=== PATIENT | male | born 1960 | race Asian ===

== ENCOUNTER 2017-05-08 13:09 | Inpatient (IN) | payer BC ==
[~2017-05-08] VITALS: Ht 167.6 cm; Wt 84.9 kg
[2017-05-08 13:36] LABS: BASOPHILS % 0.6 % (0.0-2.0); EOSINOPHILS # 0.2 10^3/ul (0.0-0.5); EOSINOPHILS % 3.2 % (0.0-7.0); HEMATOCRIT 38.8 % (37.0-47.0); HEMOGLOBIN 13.8 g/dl (12.0-16.0); LYMPHOCYTES # 1.1 10^3/ul (0.8-2.9); LYMPHOCYTES % 20.9 % (15.0-51.0); MEAN CORPUSCULAR HEMOGLOBIN 31.7 pg (29.0-33.0); MEAN CORPUSCULAR HGB CONC 35.6 g/dl (32.0-37.0); MEAN PLATELET VOLUME 10.1 fl (7.4-10.4); MONOCYTE # 0.7 10^3/ul (0.3-0.9); MONOCYTES % 12.4 % (0.0-11.0); NEUTROPHIL # 3.3 10^3/ul (1.6-7.5); NEUTROPHILS % 62.5 % (39.0-77.0); PLATELET COUNT 244 10^3/UL (140-415); RED BLOOD COUNT 4.36 10^6/ul (4.20-5.40); RED CELL DISTRIBUTION WIDTH 13.5 % (11.5-14.5); WHITE BLOOD COUNT 5.3 10^3/ul (4.8-10.8)
--- NOTE | 2017-05-08 13:41 | RADRPT ---
PROCEDURE: XR Chest. CLINICAL INDICATION: Chest pain. TECHNIQUE: Single frontal view. COMPARISON: None. FINDINGS: The lungs are clear. The heart size is normal. There is no pleural effusion. There is no pneumothorax. IMPRESSION: 1. Normal chest radiograph. RPTAT: QQ .Jefferson Méndez MD, Date Time Electronically viewed and signed by .Jefferson Méndez MD, on 05/08/2017 13:40 .R/
--- NOTE | 2017-05-08 14:05 | RADRPT ---
PROCEDURE: CT Brain without contrast. CLINICAL INDICATION: Left-sided weakness. TECHNIQUE: A CT of the brain was performed on multidetector high-resolution CT scanner utilizing a xial sections from the skull base through the vertex without contrast. The scan was reviewed in sof t tissue brain and high frequency resolution bone algorithm windows. Images were reviewed on a high -resolution PACS workstation. One or more the following does reduction techniques were utilized: Aut omated exposure control, adjustment of the mA/ or kV according to patient's size, or use of iterativ e reconstruction technique. The exam CTDI = 44.52 mGy and the DLP = 630.2 mGy-cm. COMPARISON: None available. FINDINGS: The ventricles and sulci are mildly prominent indicative of volume loss. There is no intracranial h emorrhage, mass effect or midline shift. No abnormal intra-axial or extra-axial fluid collections a re seen. The long/white matter differentiation is preserved. There are mild scattered foci of hypoattenuation in the white matter, which are nonspecific in etiol ogy but likely reflect chronic small vessel ischemic changes. There are mild intracranial vascular calcifications consistent with atherosclerosis. The visualized paranasal sinuses are essentially maegan ar. IMPRESSION: 1. No acute intracranial hemorrhage, transcortical infarction or mass effect. Please note MRI is mo re sensitive for detection of acute ischemia and can be obtained as clinically warranted. 2. Mild intracranial atherosclerosis and chronic small vessel ischemic changes. 3. Mild generalized cerebral volume loss. RPTAT: HH .Sonja Segundo MD, MD Date Time Electronically viewed and signed by .Sonja Segundo MD, MD on 05/08/2017 14:05 .N/
[2017-05-08 14:36] LABS: CALCIUM 8.9 mg/dl (8.4-10.2); CREATININE 2.24 mg/dl (0.44-1.00); POTASSIUM 4.1 mmol/L (3.5-5.1)
[2017-05-08] MEDS ORDERED: AMLO5TAB4 PO (14:41)
[2017-05-08] MEDS ORDERED: SITA100T8 PO (14:41)
[2017-05-08 14:47] LABS: TROPONIN-I 0.017 ng/ml (0.00-0.12)
[2017-05-08] MEDS ORDERED: ACETAMINOPHEN 325 MG TAB PO PRN (15:00)
[2017-05-08] MEDS ORDERED: ONDANSETRON 4 MG INJ IV PRN ×2 (15:00→17:00)
--- NOTE | 2017-05-08 15:02 | ERD ---
ER Documentation Chief Complaint Chief Complaint BIB RA FOR EVAL OF CP HPI This is a 56-year-old male with a history of hypertension, diabetes who presents to the emergency room for evaluation of chest pain. This patient states that he was at his place of work and says that he felt chest pain and became weak. He says he became dizzy and was more weak on the left side than on the right. He states that he also started to sweat and called 911. EMS did give this patient nitro and aspirin and the patient states that he is feeling better after receiving these medications. He describes his pain as a pressure- like sensation in the center of his chest with mild radiation to the left arm. The patient came to the ER today for evaluation ROS All systems reviewed and are negative except as per history of present illness. Medications Home Meds Reported Medications Sitagliptin* (Januvia*) 100 Mg Tablet, 100 MG PO DAILY, #30 TAB 05/08/17 Amlodipine Besylate* (Norvasc*) 5 Mg Tablet, 5 MG PO DAILY, TAB 05/08/17 Allergies Allergies: Coded Allergies: No Known Allergy (Unverified , 05/08/17) PMhx/Soc Hx Cardiac Disorders: Yes (HTN, HIGH CHOL) Hx Miscellaneous Medical Probl: Yes (DM, GOUT) Hx Alcohol Use: Yes Hx Substance Use: No Hx Tobacco Use: Yes (OCCASIONAL ) Smoking Status: Light tobacco smoker Physical Exam Vitals Vital Signs Date Time Temp Pulse Resp B/P Pulse Ox O2 Delivery O2 Flow Rate FiO2 05/08/17 13:35 Nasal Cannula 2 05/08/17 13:20 98.3 99 18 164/96 100 Physical Exam INITIAL VITAL SIGNS: Reviewed by me GENERAL: The patient is well developed and appropriate for usual state of health in no apparent distress HEENT: Pupils equal, round, and reactive to light. EOMI. There is no scleral icterus. NECK: C-spine is soft and supple, there is no meningismus. There is no cervical lymphadenopathy. LUNGS: Clear to auscultation bilaterally. There are no rales, wheezes or rhonchi. HEART: Regular rate and rhythm, no murmurs, clicks, rubs or gallops. ABDOMEN: Soft, non-tender, non-distended. There are bowel sounds in all four quadrants. No rebound or guarding. EXTREMITIES: There is no peripheral cyanosis or edema. No focal swelling or erythema. NEUROLOGICAL: The patient moves all four extremities with 5/5 strength. Cranial nerves II - XII are intact. Normal gait. Alert and oriented SKIN: There is no apparent rash or petechiae. HEME/LYMPHATIC: There is no evidence of excessive bruising or lymphedema. PSYCHIATRIC: The patient does not appear anxious or depressed. Result Diagram: 05/08/17 1330 05/08/17 1410 Results 24 hrs Laboratory Tests Test 05/08/17 13:30 05/08/17 14:10 White Blood Count 5.310^3/ul Red Blood Count 4.3610^6/ul Hemoglobin 13.8g/dl Hematocrit 38.8% Mean Corpuscular Volume 89.0fl Mean Corpuscular Hemoglobin 31.7pg Mean Corpuscular Hemoglobin Concent 35.6g/dl Red Cell Distribution Width 13.5% Platelet Count 92278^3/UL Mean Platelet Volume 10.1fl Neutrophils % 62.5% Lymphocytes % 20.9% Monocytes % 12.4% Eosinophils % 3.2% Basophils % 0.6% Nucleated Red Blood Cells % 0.0/100WBC Neutrophils # 3.310^3/ul Lymphocytes # 1.110^3/ul Monocytes # 0.710^3/ul Eosinophils # 0.210^3/ul Basophils # 0.010^3/ul Nucleated Red Blood Cells # 0.010^3/ul Sodium Level 140mmol/L Potassium Level 4.1mmol/L Chloride Level 106mmol/L Carbon Dioxide Level 26mmol/L Anion Gap 12 Blood Urea Nitrogen 36mg/dl Creatinine 2.24mg/dl Glucose Level 117mg/dl Calcium Level 8.9mg/dl Troponin I 0.017ng/ml [facility] EKG: Rate/Rhythm: [Normal Sinus Rhythm] QRS, ST, T-waves: [No changes consistent w/ acute ischemia] Impression: [No evidence of ischemia or arrhythmia] Chest X-ray 1V Interpreted by me: Soft Tissue: No acute abnormalities Bones: No acute abnormalities Mediastinum/Cardiac Silhouette/Lungs: [No acute abnormalities] This 56-year-old male presents to the emergency room for evaluation of chest pain. The patient has multiple risk factors including tobacco use, hypertension , and diabetes. The patient had a nonischemic EKG and his first troponin is negative. The patient is hemodynamically stable at this time, he is not hypoxic however given his multiple risk factors he will be placed in for admission for serial troponins and possible cardiology consult. The patient will be admitted to the telemetry floor and will be admitted under our panel physician Dr. Tamez Departure Diagnosis: Primary Impression: Chest pain Additional Impressions: Renal insufficiency Tobacco use Condition: Stable ROBBI ESTEVES DO May 08, 2017 15:02
[2017-05-08] MEDS ORDERED: NACL 0.9% 3 ML SYG IV SCH (17:00)
[2017-05-08] MEDS ORDERED: BISACODYL (EC) 5 MG TAB PO PRN (17:00)
[2017-05-08] MEDS ORDERED: morphine 2 MG INJ IV PRN (17:00)
--- NOTE | 2017-05-08 17:02 | HP ---
Date/Time of Note Date/Time of Note DATE: 05/08/17 TIME: 16:52 Assessment/Plan VTE Prophylaxis VTE Prophylaxis Intervention: heparin Lines/Catheters IV [facility]ter [facility]from [facility] Saline Lock Assessment/Plan Chief Complaint/Hosp Course Patient is a 56-year-old Afghan male with past medical history of hypertension and diabetes who presents with chest pain and left-sided upper extremity numbness and weakness and jaw numbness. Assessment and plan Chest pain, pressure-like sensation Upper left extremity numbness Left-sided jaw weakness Slurred speech, per patient Diabetes mellitus acute kidney injury vs CKD Hypertension Dyslipidemia Gout IVC filter placed History of DVT, secondary to airplane flight, no anticoagulation 2/2 GI bleed 2/ 2 nsaid -Patient has been very stressed at work, patient has multiple comorbidities, trend troponins, consult cardiology for ACS rule out. -Beta-blockers and aspirin, as well as as needed morphine for pain -Atorvastatin for cholesterol issues as well as ACS rule out -Echocardiogram ordered -Ultrasound carotid ordered, CT noted, MRI has been offered for the patient, however patient states that he almost from claustrophobia from previous MRI , refuses. Offered sedation medication, patient still refuses MRI states he will do any other tests except MRI. Patient states that he assumes all responsibility for not diagnosing correct etiology of symptoms even if it means debility and -Continue home meds as able -Acute kidney injury versus chronic kidney disease, patient is a diabetic, however patient may be volume depleted, will hydrate patient slowly and reevaluate in a.m. -A.m. labs Problems: HPI/ROS Admit Date/Time Admit Date/Time Hx of Present Illness Patient is a 56-year-old Afghan male with a past medical history of hypertension dyslipidemia diabetes mellitus and gout who presents to [facility] with a 1 day onset of chest pain of pressure-like sensation. Patient was at work when he began to sweat and also has left-sided jaw numbness and left-sided arm weakness as well as numbness. Patient stated that he went to his primary care provider after work and who quickly referred him to the emergency department. Patient was given aspirin and nitroglycerin by EMT and was admitted into the medicine service. Patient currently has no acute symptoms. Patient denies any shortness of breath, chest pain, nausea, vomiting, abdominal pain, urinary or bowel dysfunction. PMH: Hypertension, dyslipidemia, diabetes mellitus, gout, DVT secondary to immobility on airplane, history of GI bleed secondary to NSAID use PSH: IVC filter placement, not on anticoagulation secondary to remote bleeding Social: Occasional smoker, occasional drinker, denies drugs Meds: Patient cannot remember entire list, amlodipine, Januvia, allopurinol PMH/Family/Social Social History Smoking Status: Light tobacco smoker Exam/Review of Systems Vital Signs Vitals Vital Signs Date Time Temp Pulse Resp B/P Pulse Ox O2 Delivery O2 Flow Rate FiO2 05/08/17 13:35 Nasal Cannula 2 05/08/17 13:20 98.3 99 18 164/96 100 Exam Exam Physical exam General: Patient is laying in bed and answers questions appropriately Mentation: Patient is alert and oriented 4, Head: Normocephalic atraumatic Eyes: EOMI, pupils reactive to light Neck: Supple, nontender, midline Respiratory: Clear to auscultation bilaterally Cardiovascular: regular rate, no obvious murmurs Gastrointestinal: non-tender to palpation, bowel sounds heard. Neurological: Moves all extremities spontaneously, 5/5 muscle all extremities, CN 2-12 intact, sensation intact Skin: No new skin lesions Labs Result Diagram: 05/08/17 1330 05/08/17 1410 QUINCY HURST May 08, 2017 17:02
[2017-05-08 17:07] VITALS: TEMP 98.3
--- NOTE | 2017-05-08 17:22 | RADRPT ---
PROCEDURE: US carotid arteries. CLINICAL INDICATION: Dizziness. TECHNIQUE: Multiple sonographic images of the carotid arteries and vertebral arteries were obtaine d utilizing long scale, duplex, and color-flow imaging. The images were reviewed on a PACS workstati on. COMPARISON: No prior studies are available for comparison. FINDINGS: Evaluation of the right carotid bifurcation region reveals mild atherosclerotic disease. Evaluation of the left carotid bifurcation region reveals mild atherosclerotic disease. There is antegrade flow within the vertebral arteries bilaterally. RIGHT CAROTID MEASUREMENTS: Common Carotid [id number] (cm/sec) Internal Carotid Artery 45 (cm/sec) External Carotid Artery 55 (cm/sec) Vertebral Artery 24 (cm/sec) Internal Carotid/Common Carotid0.6 LEFT CAROTID MEASUREMENTS: Common Carotid [id number] (cm/sec) Internal Carotid Artery 52 (cm/sec) External Carotid Artery 70 (cm/sec) Vertebral Artery 51 (cm/sec) Internal Carotid/Common Carotid1.0 Validated velocity measurements with angiographic measurements. Velocity criteria are extrapolated f rom diameter data as defined by the Society of Radiologists in Ultrasound Consensus Conference. Radi ology 2003; 229;340-346. This study does indirectly reference the measurement of the distal ICA jose de jesus meter as the denominator for stenosis measurement. IMPRESSION: 1. Less than 50% stenosis bilaterally in the internal carotid arteries. 2. Normal antegrade flow in the vertebral arteries bilaterally. RPTAT: QQ SRU Consensus Conference Criteria for the Diagnosis of Carotid Artery Stenosis* Degree of Stenosis, % ICA PSV, cm/sec Plaque Estimate, % ICA/CCA PSV Ratio Normal <125 None <2.0 <50 <125 <50 <2.0 50 69 125-230 >50 2.0-4.0 >70 but less than near occlusion >230 >50 <4.0 Near occlusion High, low, or undetectable Visible Variable Total occlusion Undetectable Visible, no detectable lumen Not applicable *Cartoid artery stenosis: long-scale and Doppler US diagnosis. Society of Radiologists in Ultrasound Consensus Conference. Radiology 2003; 229: 340-346 .Jefferson Méndez MD, Date Time Electronically viewed and signed by .Jefferson Méndez MD, on 05/08/2017 17:22 .R/
[2017-05-08] MEDS ORDERED: GLUCAGON 1 MG INJ IM PRN (17:30)
[2017-05-08] MEDS ORDERED: GLUCOSE GEL 15 GRAM TUBE PO PRN ×2 (17:30)
[2017-05-08] MEDS ORDERED: GLUCOSE GEL 15 GRAM TUBE BUCCAL PRN (17:30)
[2017-05-08] MEDS ORDERED: DEXTROSE 50% 50 ML SYRINGE IV PRN ×2 (17:30)
--- NOTE | 2017-05-08 17:35 | RADRPT ---
PROCEDURE: US Lower extremity venous, bilateral CLINICAL INDICATION: The venous thrombosis TECHNIQUE: Multiple sonographic images of the bilateral lower extremity deep venous system was ob tained utilizing grayscale, color-flow, compressive sonography and doppler imaging with augmentation . The images were reviewed on a PACS workstation. COMPARISON: None. FINDINGS: There is normal compressibility and flow within the bilateral common femoral, superficial femoral , posterior tibial, peroneal and popliteal veins. RPTAT: AA IMPRESSION: No sonographic evidence for deep venous thrombosis in bilateral lower extremities. Physician Thuy Date Time Electronically viewed and signed by Physician Thuy on 05/08/2017 17:35 RA/
[2017-05-08 17:50] VITALS: BP 158/94; PULSE 96; RESP 20
[2017-05-08] MEDS ORDERED: INSULIN ASPART [NOVOLOG] 3 ML PEN SC SCH (18:00)
[2017-05-08 18:12] VITALS: PULSE 85
[2017-05-08 18:30] VITALS: Ht 167.6 cm; Wt 84.9 kg
[2017-05-08 19:46] VITALS: BP 138/64; RESP 20
[2017-05-08 20:11] VITALS: PULSE 100
[2017-05-08] MEDS ORDERED: ATORVASTATIN 80 MG TAB PO SCH (21:00)
[2017-05-08] MEDS: INSULIN ASPART [NOVOLOG] 3 ML PEN SC SCH (21:00)
[2017-05-08 21:25] LABS: CK-MB 1.71 ng/ml (0.0-2.4); TROPONIN-I 0.037 ng/ml (0.00-0.12)
[2017-05-08] MEDS: SOD CHLORIDE 0.9% 1,000 ML IV SCH (21:58)
[2017-05-08] MEDS: METOPROLOL 25 MG TAB PO SCH (21:59)
[2017-05-08] MEDS: LORAZEPAM 2 MG INJ IV PRN (21:59)
[2017-05-08] MEDS: HEPARIN 5,000 UNIT/0.5 ML VIAL SC SCH (22:10)
[2017-05-09] VITALS (13 sets, daily range): BP systolic 116–155; BP diastolic 73–97; PULSE 63–75; RESP 18–20
[2017-05-09 01:41] LABS: CK-MB 1.49 ng/ml (0.0-2.4)
[2017-05-09 01:44] LABS: TROPONIN-I 0.039 ng/ml (0.00-0.12)
[2017-05-09] MEDS: ACCU-CHEK XX SCH (02:00)
[2017-05-09] MEDS: PANTOPRAZOLE (EC) 40 MG TAB PO SCH (05:42)
[2017-05-09] MEDS: HEPARIN 5,000 UNIT/0.5 ML VIAL SC SCH ×3 (05:42→21:24)
--- NOTE | 2017-05-09 06:37 | RADRPT ---
PROCEDURE: CHEST - 1 VIEW CLINICAL INDICATION: 56-year-old male with chest pain. TECHNIQUE: A single frontal AP portable view of the chest was performed. The images were reviewed on a PACS workstation. COMPARISON: Chest x-ray May 08, 2017. FINDINGS: The cardiomediastinal silhouette has a normal appearance. There is no evidence for an infiltrate. There is no evidence for congestive heart failure. There is no evidence for pneumothorax. The osseou s structures are intact. IMPRESSION: No evidence for active cardiopulmonary disease. .José Miguel Fuentes MD, MD Date Time Electronically viewed and signed by .José Miguel Fuentes MD, MD on 05/09/2017 06:37 .M/
[2017-05-09] MEDS: INSULIN ASPART [NOVOLOG] 3 ML PEN SC SCH ×4 (08:00→21:00)
[2017-05-09 08:52] LABS: BASOPHILS % 0.7 % (0.0-2.0); EOSINOPHILS # 0.2 10^3/ul (0.0-0.5); HEMATOCRIT 38.4 % (42.0-52.0); LYMPHOCYTES # 1.4 10^3/ul (0.8-2.9); LYMPHOCYTES % 25.1 % (15.0-51.0); MEAN CORPUSCULAR HEMOGLOBIN 30.8 pg (29.0-33.0); MEAN CORPUSCULAR HGB CONC 33.9 g/dl (32.0-37.0); MEAN PLATELET VOLUME 10.1 fl (7.4-10.4); MONOCYTE # 0.7 10^3/ul (0.3-0.9); MONOCYTES % 12.5 % (0.0-11.0); NEUTROPHIL # 3.1 10^3/ul (1.6-7.5); NEUTROPHILS % 57.5 % (39.0-77.0); PLATELET COUNT 231 10^3/UL (140-415); RED BLOOD COUNT 4.22 10^6/ul (4.70-6.10); RED CELL DISTRIBUTION WIDTH 13.6 % (11.5-14.5); WHITE BLOOD COUNT 5.5 10^3/ul (4.8-10.8)
[2017-05-09] MEDS ORDERED: ENOXAPARIN 40 MG/0.4 ML SYG SC SCH (09:00)
[2017-05-09 09:09] LABS: ALBUMIN 3.5 g/dl (3.3-4.9); ALBUMIN/GLOBULIN RATIO 0.92; BILIRUBIN,INDIRECT 0.2 mg/dl (0-1.1); BILIRUBIN,TOTAL 0.2 mg/dl (0.2-1.3); CALCIUM 8.8 mg/dl (8.4-10.2); CHOL/HDL RATIO 3.5 RATIO; CREATININE 2.32 mg/dl (0.61-1.24); POTASSIUM 3.9 mmol/L (3.5-5.1); TOTAL PROTEIN 7.3 g/dl (6.1-8.1)
[2017-05-09 09:32] LABS: THYROID STIMULATING HORMONE 2.23 MIU/L (0.465-4.680)
[2017-05-09] MEDS: METOPROLOL 25 MG TAB PO SCH ×2 (09:45→21:17)
[2017-05-09] MEDS: ASPIRIN 81 MG TAB PO SCH (09:45)
--- NOTE | 2017-05-09 09:59 | CONS ---
Date/Time of Note Date/Time of Note DATE: 05/09/17 TIME: 09:59 Assessment/Plan Assessment/Plan Additional Assessment/Plan ASSESSMENT: 1. Acute kidney injury vs ACute kidney injury on CKD due to Prerenal azotemia + CRS 2. possible CKD III due to diabetic nephropathy 3. Chest pain rule out ACS 4. TIA Vs Rule out CVA 5. HTN 6. Poorly controlled DM II 7. hyperlipidemia 8. History of DVT, secondary to airplane flight, no anticoagulation 2/2 GI bleed 2/2 NSAID s/p IVC filter placement before Plan: Work up for chest pain and TIA as per PMD avoid ACEI/ARB due to elevated BUN/Cr will order Urine prot/cr ratio, Urine Na, urine eosinophils, CK total ,uric acid RENAL US has been unremarkable, but it showed right kidney 10 cm and left kidney 10.2 cm, c/w medical renal disease Cardiology has been consulted on the case ASA, lipitor and metoprolol for HTN and HL Thanks for consultation, we will continue to follow up on patient Consultation Date/Type/Reason Admit Date/Time 05/08/2017 Date of Consultation: May 09, 2017 Type of Consultation: NEPHROLOGY Reason for Consultation acute Kidney injury on CKD III Referring Provider: QUINCY HURST Hx of Present Illness 56-year-old Indian male with a past medical history of hypertension dyslipidemia diabetes mellitus and gout who presents to [facility] with a 1 day onset of chest pain of pressure-like sensation. Patient was at work when he began to sweat and also has left-sided jaw numbness and left -sided arm weakness as well as numbness. Patient stated that he went to his primary care provider after work and who quickly referred him to the emergency department. Patient was given aspirin and nitroglycerin by EMT and was admitted into the medicine service. Patient currently has no acute symptoms. Patient denies any shortness of breath, chest pain, nausea, vomiting, abdominal pain, urinary or bowel dysfunction. He is noted to have BUN 36, Cr 2.26 and Renal has been consulted for SUZI vs SUZI on CKD Constitutional: no complaints Eyes: no complaints ENT: no complaints Respiratory: pain, pleuritic pain Cardiovascular: chest pain Gastrointestinal: no complaints Genitourinary: no complaints Musculoskeletal: no complaints Skin: no complaints Neurologic: no complaints Endocrine: no complaints Lymphatic: no complaints Psychological: no complaints Immunologic: no complaints Past Medical History Medical History: diabetes, high cholesterol, hypertension, other (gout, DVT secondary to immobility on airplane, history of GI bleed secondary to NSAID use) Past Surgical History Past Surgical Hx: other (IVC filter placement, not on anticoagulation secondary to remote bleeding) Family History Significant Family History: no pertinent family hx Social History Alcohol Use: occasionally Smoking Status: Current every day smoker Drug Use: none Exam/Review of Systems Vital Signs Vitals Vital Signs Date Time Temp Pulse Resp B/P Pulse Ox O2 Delivery O2 Flow Rate FiO2 05/09/17 08:16 69 05/09/17 07:27 98.1 20 129/79 98 05/08/17 17:50 Room Air 05/08/17 13:35 2 Intake and Output 05/08/17 05/08/17 05/09/17 15:00 23:00 07:00 Intake Total 400 ml Balance 400 ml Exam Constitutional: alert Psych: no complaints Head: normocephalic Eyes: nl conjunctiva Neck: non-tender, supple Respiratory: clear to auscultation, diminished breath sounds, normal air movement Cardiovascular: nl pulses, regular rate and rhythm Gastrointestinal: non-tender, soft Musculoskeletal: muscle tone, muscle weakness, nl extremities to inspection, nl gait and stance Neurological: LEGAL FIN[employer]CIAL SPECIALIST II-XII intact, nl mental status, nl speech, nl strength Skin: nl turgor Lymph: nl lymph nodes Results Result Diagram: 05/09/17 0729 05/09/17 0729 Results 24 hrs Laboratory Tests Test 05/08/17 13:30 05/08/17 14:10 05/08/17 20:43 05/08/17 22:09 White Blood Count 5.3 Red Blood Count 4.36 Hemoglobin 13.8 Hematocrit 38.8 Mean Corpuscular Volume 89.0 Mean Corpuscular Hemoglobin 31.7 Mean Corpuscular Hemoglobin Concent 35.6 Red Cell Distribution Width 13.5 Platelet Count 244 Mean Platelet Volume 10.1 Neutrophils % 62.5 Lymphocytes % 20.9 Monocytes % 12.4 H Eosinophils % 3.2 Basophils % 0.6 Nucleated Red Blood Cells % 0.0 Neutrophils # 3.3 Lymphocytes # 1.1 Monocytes # 0.7 Eosinophils # 0.2 Basophils # 0.0 Nucleated Red Blood Cells # 0.0 Sodium Level 140 Potassium Level 4.1 Chloride Level 106 Carbon Dioxide Level 26 Anion Gap 12 Blood Urea Nitrogen 36 H Creatinine 2.24 H Glucose Level 117 Calcium Level 8.9 Troponin I 0.017 0.037 Creatine Kinase 179 Creatine Kinase Index 1.0 Creatinine Kinase MB (Mass) 1.71 Bedside Glucose 118 Test 05/09/17 00:54 05/09/17 07:29 05/09/17 08:25 Creatine Kinase 154 Creatine Kinase Index 1.0 Creatinine Kinase MB (Mass) 1.49 Troponin I 0.039 White Blood Count 5.5 Red Blood Count 4.22 L Hemoglobin 13.0 L Hematocrit 38.4 L Mean Corpuscular Volume 91.0 Mean Corpuscular Hemoglobin 30.8 Mean Corpuscular Hemoglobin Concent 33.9 Red Cell Distribution Width 13.6 Platelet Count 231 Mean Platelet Volume 10.1 Neutrophils % 57.5 Lymphocytes % 25.1 Monocytes % 12.5 H Eosinophils % 4.0 Basophils % 0.7 Nucleated Red Blood Cells % 0.0 Neutrophils # 3.1 Lymphocytes # 1.4 Monocytes # 0.7 Eosinophils # 0.2 Basophils # 0.0 Nucleated Red Blood Cells # 0.0 Sodium Level 140 Potassium Level 3.9 Chloride Level 105 Carbon Dioxide Level 27 Anion Gap 12 Blood Urea Nitrogen 38 H Creatinine 2.32 H Glucose Level 110 Hemoglobin A1c 6.1 H Calcium Level 8.8 Total Bilirubin 0.2 Direct Bilirubin 0.00 Indirect Bilirubin 0.2 Aspartate Amino Transf (AST/SGOT) 27 Alanine Aminotransferase (ALT/SGPT) 28 Alkaline Phosphatase 68 Total Protein 7.3 Albumin 3.5 Globulin 3.80 H Albumin/Globulin Ratio 0.92 Triglycerides Level 386 H Cholesterol Level 194 LDL Cholesterol, Calculated 62 HDL Cholesterol 55 Cholesterol/HDL Ratio 3.5 Thyroid Stimulating Hormone (TSH) 2.230 Bedside Glucose 127 Medications Medications Current Medications Sodium Chloride (NS) 1,000 ml @ 50 mls/hr Q20H IV Last administered on 21:58; Admin Dose 50 MLS/HR; Start 05/08/17 at 16:40 Lorazepam (Ativan) 0.5 mg Q6H PRN IV ANXIETY Last administered on 05/08/17 21 :59; Admin Dose 0.5 MG; Start 05/08/17 at 17:00 Ondansetron HCl (Zofran Inj) 4 mg Q6H PRN IV NAUSEA AND/OR VOMITING; Start at 17:00 Aspirin (Aspirin) 81 mg DAILY PO Last administered on 05/09/17 09:45; Admin Dose 81 MG; Start 05/09/17 at 09:00 Acetaminophen (Tylenol Tab) 650 mg Q6H PRN PO PAIN LEVEL 1-3 OR FEVER; Start 05/08/17 at 17:00 Morphine Sulfate (morphine) 2 mg Q4H PRN IV PAIN LEVEL 7-10; Start 05/08/17 at 17:00 Bisacodyl (Dulcolax) 5 mg DAILY PRN PO CONSTIPATION; Start 05/08/17 at 17:00 Pantoprazole (Protonix Tab) 40 mg DAILY@06 PO Last administered on 05/09/17 05:42; Admin Dose 40 MG; Start 05/09/17 at 06:00 Diagnostic Test (Pha) (Accu-Chek) 1 ea 02 XX ; Start 05/09/17 at 02:00 Atorvastatin Calcium (Lipitor) 80 mg HS PO Last administered on 05/08/17 21: 58; Admin Dose 80 MG; Start 05/08/17 at 21:00 Metoprolol Tartrate (Lopressor) 25 mg BID PO Last administered on 05/09/17 09 :45; Admin Dose 25 MG; Start 05/08/17 at 21:00 Heparin Sodium (Porcine) (Heparin (5000 Units/0.5 ml)) 5,000 unit Q8 SC Last administered on 05/09/17 05:42; Admin Dose 5,000 UNIT; Start 05/08/17 at 22: 00 Miscellaneous Information 1 ea NOTE XX ; Start 05/08/17 at 17:30 Glucose (Glutose) 15 gm Q15M PRN PO DECREASED GLUCOSE; Start 05/08/17 at 17:30 Glucose (Glutose) 22.5 gm Q15M PRN PO DECREASED GLUCOSE; Start 05/08/17 at 17: 30 Dextrose (D50w Syringe) 25 ml Q15M PRN IV DECREASED GLUCOSE; Start 05/08/17 at 17:30 Dextrose (D50w Syringe) 50 ml Q15M PRN IV DECREASED GLUCOSE; Start 05/08/17 at 17:30 Glucagon (Glucagen) 1 mg Q15M PRN IM DECREASED GLUCOSE; Start 05/08/17 at 17: 30 Glucose (Glutose) 15 gm Q15M PRN BUCCAL DECREASED GLUCOSE; Start 05/08/17 at 17:30 REHANA STEVENS MD May 09, 2017 09:59
--- NOTE | 2017-05-09 11:35 | RADRPT ---
PROCEDURE: Renal US. CLINICAL INDICATION: Renal dysfunction. TECHNIQUE: Multiple sonographic images of the kidneys and urinary bladder were obtained. The imag es were reviewed on a PACS workstation. COMPARISON: No prior studies are available for comparison. FINDINGS: The right kidney measures 10.0 cm. The left kidney measures 10.3 cm. There is no renal mass. There is no hydronephrosis. There is no renal calculus. Renal parenchymal thickness is normal bilaterally. Echogenicity is normal bilaterally. The perirenal regions are normal with no fluid collection or mass. The urinary bladder is unremarkable. IMPRESSION: 1. Unremarkable renal ultrasound. RPTAT: QQ .Jefferson Méndez MD, MD Date Time Electronically viewed and signed by .Jefferson Méndez MD, on 05/09/2017 11:34 .R/
--- NOTE | 2017-05-09 12:01 | RADRPT ---
Echocardiogram Report Patient Name: AKIN GALAN Gender: Male Date: 1960 Study Date: 09-May-2017 Point Of Sale Associate: ELAINE Location: 5551 Ref. Physician: QUINCY HURST Quality: Good Procedures: Transthoracic echocardiogram with complete 2D, M-Mode, and doppler examination. Indications: Chest Pain. 2D/M Mode Doppler Measurement Value Normal Ranges Measurement Value Normal Ranges AoR Diam MM 3.5 cm FABIAN Vmax 2.6 cm2 ACS MM 2.2 cm FABIAN VTI 2.6 cm2 LA/Ao MM 1.0 AV Peak Luther 1.0 m/sec LA Dimen MM 3.6 cm AV Peak PG 4.0 mmHg LVIDd 2D 5.0 3.5 - 5.6 cm LVOT Peak Luther 0.8 m/sec LVIDs 2D 3.4 2.1 - 4.1 cm LVOT Peak PG 2.7 mmHg LVPWd 2D 1.0 0.6 - 1.1 cm MV E Peak Luther 0.6 m/sec IVSd 2D 1.1 0.6 - 1.1 cm MV A Peak Luther 0.9 m/sec EDV 2D 116.3 cm3 MV E/A 0.8 ESV 2D 38.8 cm3 MV Decel Time 193 msec EF 2D 60.0 50.0 - 65.0 % MV Decel [place] 3 LVOT Diam 2.0 cm MV E/A 0.8 Findings Left Ventricle: Normal left ventricular systolic function. Normal left ventricular cavity size. Normal left ventricular wall thickness. Ejection fraction is visually estimated at 5560 %. Tissue Doppler/Mitral Doppler indices are consistent with impaired relaxation (Stage I diastolic dysfunction). Right Ventricle: Normal right ventricular size. Normal right ventricular systolic function. Left Atrium: The left atrium is normal in size. Right Atrium: The right atrium is normal in size. Mitral Valve: Normal appearance of the mitral valve. Mild mitral annular calcification. Trace mitral regurgitation. Aortic Valve: Normal appearance of the aortic valve. No significant aortic stenosis or insufficiency. Tricuspid Valve: Normal appearance of the tricuspid valve. Unable to obtain RVSP due to minimal presence of tricuspid regurgitation. Pulmonic Valve: Pulmonic valve not well visualized however velocity is normal. Pericardium: Normal pericardium with no significant pericardial effusion. Aorta: Normal aortic root. IVC: Normal size and normal respiratory collapse consistent with normal right atrial pressure. Conclusions 1.The left ventricle is normal in size and systolic function. 2.Estimated left ventricular ejection fraction of 55-60%. 3.Grade 1 diastolic dysfunction. Electronically Signed By: Jelani Matos 09-May-2017 12:00:48 -0700 Patient Name: AKIN GALAN Study Date: 09-May-2017 [id number]
[2017-05-09 12:11] LABS: URIC ACID 7.8 mg/dl (3.1-7.9)
[2017-05-09] MEDS: SOD CHLORIDE 0.9% 1,000 ML IV SCH (12:40)
--- NOTE | 2017-05-09 13:38 | PN ---
Date/Time of Note Date/Time of Note DATE: 05/09/17 TIME: 13:34 Assessment/Plan VTE Prophylaxis VTE Prophylaxis Intervention: heparin Lines/Catheters IV Catheter Type (from [email or web address] Peripheral IV Assessment/Plan Chief Complaint/Hosp Course Patient is a 56-year-old Turkish male with past medical history of hypertension and diabetes who presents with chest pain and left-sided upper extremity numbness and weakness and jaw numbness. Assessment and plan Chest pain, pressure-like sensation Upper left extremity numbness Left-sided jaw weakness Slurred speech, per patient Diabetes mellitus acute kidney injury vs CKD Hypertension Dyslipidemia Gout IVC filter placed History of DVT, secondary to airplane flight, no anticoagulation 2/2 GI bleed 2/ 2 nsaid -Patient has been very stressed at work, patient has multiple comorbidities, trop neg, consult cardiology for ACS rule out. pending cards recs -Beta-blockers and aspirin, as well as as needed morphine for pain -Atorvastatin for cholesterol issues as well as ACS rule out -Echocardiogram ordered -Ultrasound carotid noted, CT noted, MRI has been offered for the patient, however patient states that he almost from claustrophobia from previous MRI , refuses. Offered sedation medication, patient still refuses MRI states he will do any other tests except MRI. Patient states that he assumes all responsibility for not diagnosing correct etiology of symptoms even if it means debility and -Patient states he got DVT 2 years ago while on a flight form the [facility], no cancer or coagulopathy hx, given provoked DVT, not on anticoagulation, 2 years ago with no DVT before or after, will consider IVC filter removal. Dr. Murray, vascular surgery consulted. -Continue home meds as able -Acute kidney injury versus chronic kidney disease, patient is a diabetic and a remote hx of renal issues, US renal and nephro consult made. Dr. Yang. -A.m. labs Problems: Subjective 24 Hr Interval Summary Free Text/Dictation no chest pain, no left sided weakness Exam/Review of Systems Vital Signs Vitals Vital Signs Date Time Temp Pulse Resp B/P Pulse Ox O2 Delivery O2 Flow Rate FiO2 05/09/17 12:15 63 05/09/17 11:16 98.1 20 137/88 95 05/08/17 17:50 Room Air 05/08/17 13:35 2 Intake and Output 05/08/17 05/08/17 05/09/17 15:00 23:00 07:00 Intake Total 400 ml Balance 400 ml Exam Physical exam General: Patient is laying in bed and answers questions appropriately Mentation: Patient is alert and oriented 4, Head: Normocephalic atraumatic Eyes: EOMI, pupils reactive to light Neck: Supple, nontender, midline Respiratory: Clear to auscultation bilaterally Cardiovascular: regular rate, no obvious murmurs Gastrointestinal: non-tender to palpation, bowel sounds heard. Neurological: Moves all extremities spontaneously, 5/5 muscle all extremities, CN 2-12 intact, sensation intact Skin: No new skin lesions Results Result Diagram: 05/09/17 0729 05/09/17 0729 Results 24 hrs Laboratory Tests Test 05/08/17 14:10 05/08/17 20:43 05/08/17 22:09 05/09/17 00:54 Sodium Level 140 Potassium Level 4.1 Chloride Level 106 Carbon Dioxide Level 26 Anion Gap 12 Blood Urea Nitrogen 36 H Creatinine 2.24 H Glucose Level 117 Calcium Level 8.9 Troponin I 0.017 0.037 0.039 Creatine Kinase 179 154 Creatine Kinase Index 1.0 1.0 Creatinine Kinase MB (Mass) 1.71 1.49 Bedside Glucose 118 Test 05/09/17 07:29 05/09/17 08:25 05/09/17 10:42 05/09/17 12:18 White Blood Count 5.5 Red Blood Count 4.22 L Hemoglobin 13.0 L Hematocrit 38.4 L Mean Corpuscular Volume 91.0 Mean Corpuscular Hemoglobin 30.8 Mean Corpuscular Hemoglobin Concent 33.9 Red Cell Distribution Width 13.6 Platelet Count 231 Mean Platelet Volume 10.1 Neutrophils % 57.5 Lymphocytes % 25.1 Monocytes % 12.5 H Eosinophils % 4.0 Basophils % 0.7 Nucleated Red Blood Cells % 0.0 Neutrophils # 3.1 Lymphocytes # 1.4 Monocytes # 0.7 Eosinophils # 0.2 Basophils # 0.0 Nucleated Red Blood Cells # 0.0 Sodium Level 140 Potassium Level 3.9 Chloride Level 105 Carbon Dioxide Level 27 Anion Gap 12 Blood Urea Nitrogen 38 H Creatinine 2.32 H Glucose Level 110 Hemoglobin A1c 6.1 H Calcium Level 8.8 Total Bilirubin 0.2 Direct Bilirubin 0.00 Indirect Bilirubin 0.2 Aspartate Amino Transf (AST/SGOT) 27 Alanine Aminotransferase (ALT/SGPT) 28 Alkaline Phosphatase 68 Total Protein 7.3 Albumin 3.5 Globulin 3.80 H Albumin/Globulin Ratio 0.92 Triglycerides Level 386 H Cholesterol Level 194 LDL Cholesterol, Calculated 62 HDL Cholesterol 55 Cholesterol/HDL Ratio 3.5 Thyroid Stimulating Hormone (TSH) 2.230 Bedside Glucose 127 110 Uric Acid 7.8 Creatine Kinase 127 Parathyroid Hormone (Intact) Medications Medications Current Medications Sodium Chloride (NS) 1,000 ml @ 50 mls/hr Q20H IV Last administered on 21:58; Admin Dose 50 MLS/HR; Start 05/08/17 at 16:40 Lorazepam (Ativan) 0.5 mg Q6H PRN IV ANXIETY Last administered on 05/08/17 21 :59; Admin Dose 0.5 MG; Start 05/08/17 at 17:00 Ondansetron HCl (Zofran Inj) 4 mg Q6H PRN IV NAUSEA AND/OR VOMITING; Start at 17:00 Aspirin (Aspirin) 81 mg DAILY PO Last administered on 05/09/17 09:45; Admin Dose 81 MG; Start 05/09/17 at 09:00 Acetaminophen (Tylenol Tab) 650 mg Q6H PRN PO PAIN LEVEL 1-3 OR FEVER; Start 05/08/17 at 17:00 Morphine Sulfate (morphine) 2 mg Q4H PRN IV PAIN LEVEL 7-10; Start 05/08/17 at 17:00 Bisacodyl (Dulcolax) 5 mg DAILY PRN PO CONSTIPATION; Start 05/08/17 at 17:00 Pantoprazole (Protonix Tab) 40 mg DAILY@06 PO Last administered on 05/09/17 05:42; Admin Dose 40 MG; Start 05/09/17 at 06:00 Diagnostic Test (Pha) (Accu-Chek) 1 ea 02 XX ; Start 05/09/17 at 02:00 Atorvastatin Calcium (Lipitor) 80 mg HS PO Last administered on 05/08/17 21: 58; Admin Dose 80 MG; Start 05/08/17 at 21:00 Metoprolol Tartrate (Lopressor) 25 mg BID PO Last administered on 05/09/17 09 :45; Admin Dose 25 MG; Start 05/08/17 at 21:00 Heparin Sodium (Porcine) (Heparin (5000 Units/0.5 ml)) 5,000 unit Q8 SC Last administered on 05/09/17t 05:42; Admin Dose 5,000 UNIT; Start 05/08/17 at 22: 00 Miscellaneous Information 1 ea NOTE XX ; Start 05/08/17 at 17:30 Glucose (Glutose) 15 gm Q15M PRN PO DECREASED GLUCOSE; Start 05/08/17 at 17:30 Glucose (Glutose) 22.5 gm Q15M PRN PO DECREASED GLUCOSE; Start 05/08/17 at 17: 30 Dextrose (D50w Syringe) 25 ml Q15M PRN IV DECREASED GLUCOSE; Start 05/08/17 at 17:30 Dextrose (D50w Syringe) 50 ml Q15M PRN IV DECREASED GLUCOSE; Start 05/08/17 at 17:30 Glucagon (Glucagen) 1 mg Q15M PRN IM DECREASED GLUCOSE; Start 05/08/17 at 17: 30 Glucose (Glutose) 15 gm Q15M PRN BUCCAL DECREASED GLUCOSE; Start 05/08/17 at 17:30 QUINCY HURST May 09, 2017 13:38
--- NOTE | 2017-05-09 14:29 | CONS ---
Date/Time of Note Date/Time of Note DATE: 05/09/17 TIME: 14:22 Assessment/Plan Assessment/Plan Chief Complaint/Hosp Course Assessment: Chest pain - ruled out for myocardial infarction, normal LVEF 55-60% on echocardiogram Acute kidney injury vs chronic kidney disease Hypertension Dyslipidemia Diabetes mellitus Gout History of deep vein thrombosis (in setting of immobility on an airplane), status post IVC filter placement History of gastrointestinal bleeding (secondary to NSAID use) Recommendations: -continue aspirin 81mg daily -decrease atorvastatin to 10mg daily -outpatient cardiac stress testing Problems: Consultation Date/Type/Reason Admit Date/Time 05/08/2017 Type of Consultation: Cardiology Reason for Consultation chest pain Hx of Present Illness The patient is a 56 year-old male who presented with chest pain. He reports having onset of left-sided chest pressure while driving yesterday. There was associated left arm and facial numbness. The symptoms lasted for one hour and finally resolved after receiving aspirin and nitroglycerin. He had similar symptoms in 1999, which was thought to be due to stress and anxiety. He had a normal cardiac stress test back at that time. EKG showed sinus rhythm, left atrial abnormality, and no acute ischemic changes. Troponins have been negative x 3. 14 point review of systems negative other than per HPI. Past Medical History Hypertension Dyslipidemia Diabetes mellitus Gout History of deep vein thrombosis (in setting of immobility on an airplane), status post IVC filter placement History of gastrointestinal bleeding (secondary to NSAID use) Past Surgical History Spinal cyst removal Left inguinal hernia repair Social History Alcohol Use: occasionally Smoking Status: Current some day smoker Drug Use: none Exam/Review of Systems Vital Signs Vitals Vital Signs Date Time Temp Pulse Resp B/P Pulse Ox O2 Delivery O2 Flow Rate FiO2 05/09/17 12:15 63 05/09/17 11:16 98.1 20 137/88 95 05/08/17 17:50 Room Air 05/08/17 13:35 2 Intake and Output 05/08/17 05/08/17 05/09/17 15:00 23:00 07:00 Intake Total 400 ml Balance 400 ml Exam Constitutional: alert, well developed Psych: nl mood/affect, no complaints Head: atraumatic, normocephalic Eyes: nl conjunctiva, nl lids ENMT: nl external ears & nose, nl nasal mucosa & septum Neck: non-tender, supple, No jvd Respiratory: clear to auscultation, normal air movement Cardiovascular: regular rate and rhythm, No murmurs/extra sounds Gastrointestinal: non-tender, soft Musculoskeletal: nl extremities to inspection, nl gait and stance Extremities: No clubbing, No cyanosis, No edema Neurological: nl mental status, nl speech Skin: nl turgor Results Result Diagram: 05/09/17 0729 05/09/17 0729 Results 24 hrs Laboratory Tests Test 05/08/17 20:43 05/08/17 22:09 05/09/17 00:54 05/09/17 07:29 Creatine Kinase 179 154 Creatine Kinase Index 1.0 1.0 Creatinine Kinase MB (Mass) 1.71 1.49 Troponin I 0.037 0.039 Bedside Glucose 118 White Blood Count 5.5 Red Blood Count 4.22 L Hemoglobin 13.0 L Hematocrit 38.4 L Mean Corpuscular Volume 91.0 Mean Corpuscular Hemoglobin 30.8 Mean Corpuscular Hemoglobin Concent 33.9 Red Cell Distribution Width 13.6 Platelet Count 231 Mean Platelet Volume 10.1 Neutrophils % 57.5 Lymphocytes % 25.1 Monocytes % 12.5 H Eosinophils % 4.0 Basophils % 0.7 Nucleated Red Blood Cells % 0.0 Neutrophils # 3.1 Lymphocytes # 1.4 Monocytes # 0.7 Eosinophils # 0.2 Basophils # 0.0 Nucleated Red Blood Cells # 0.0 Sodium Level 140 Potassium Level 3.9 Chloride Level 105 Carbon Dioxide Level 27 Anion Gap 12 Blood Urea Nitrogen 38 H Creatinine 2.32 H Glucose Level 110 Hemoglobin A1c 6.1 H Calcium Level 8.8 Total Bilirubin 0.2 Direct Bilirubin 0.00 Indirect Bilirubin 0.2 Aspartate Amino Transf (AST/SGOT) 27 Alanine Aminotransferase (ALT/SGPT) 28 Alkaline Phosphatase 68 Total Protein 7.3 Albumin 3.5 Globulin 3.80 H Albumin/Globulin Ratio 0.92 Triglycerides Level 386 H Cholesterol Level 194 LDL Cholesterol, Calculated 62 HDL Cholesterol 55 Cholesterol/HDL Ratio 3.5 Thyroid Stimulating Hormone (TSH) 2.230 Test 05/09/17 08:25 05/09/17 10:42 05/09/17 12:18 Bedside Glucose 127 110 Uric Acid 7.8 Creatine Kinase 127 Parathyroid Hormone (Intact) Medications Medications Current Medications Lorazepam (Ativan) 0.5 mg Q6H PRN IV ANXIETY Last administered on 05/08/17 21 :59; Admin Dose 0.5 MG; Start 05/08/17 at 17:00 Ondansetron HCl (Zofran Inj) 4 mg Q6H PRN IV NAUSEA AND/OR VOMITING; Start at 17:00 Aspirin (Aspirin) 81 mg DAILY PO Last administered on 05/09/17 09:45; Admin Dose 81 MG; Start 05/09/17 at 09:00 Acetaminophen (Tylenol Tab) 650 mg Q6H PRN PO PAIN LEVEL 1-3 OR FEVER; Start 05/08/17 at 17:00 Morphine Sulfate (morphine) 2 mg Q4H PRN IV PAIN LEVEL 7-10; Start 05/08/17 at 17:00 Bisacodyl (Dulcolax) 5 mg DAILY PRN PO CONSTIPATION; Start 05/08/17 at 17:00 Pantoprazole (Protonix Tab) 40 mg DAILY@06 PO Last administered on 05/09/17 05:42; Admin Dose 40 MG; Start 05/09/17 at 06:00 Diagnostic Test (Pha) (Accu-Chek) 1 ea 02 XX ; Start 05/09/17 at 02:00 Atorvastatin Calcium (Lipitor) 80 mg HS PO Last administered on 05/08/17 21: 58; Admin Dose 80 MG; Start 05/08/17 at 21:00 Metoprolol Tartrate (Lopressor) 25 mg BID PO Last administered on 05/09/17 09 :45; Admin Dose 25 MG; Start 05/08/17 at 21:00 Heparin Sodium (Porcine) (Heparin (5000 Units/0.5 ml)) 5,000 unit Q8 SC Last administered on 05/09/17 05:42; Admin Dose 5,000 UNIT; Start 05/08/17 at 22: 00 Miscellaneous Information 1 ea NOTE XX ; Start 05/08/17 at 17:30 Glucose (Glutose) 15 gm Q15M PRN PO DECREASED GLUCOSE; Start 05/08/17 at 17:30 Glucose (Glutose) 22.5 gm Q15M PRN PO DECREASED GLUCOSE; Start 05/08/17 at 17: 30 Dextrose (D50w Syringe) 25 ml Q15M PRN IV DECREASED GLUCOSE; Start 05/08/17 at 17:30 Dextrose (D50w Syringe) 50 ml Q15M PRN IV DECREASED GLUCOSE; Start 05/08/17 at 17:30 Glucagon (Glucagen) 1 mg Q15M PRN IM DECREASED GLUCOSE; Start 05/08/17 at 17: 30 Glucose 15 gm 15 gm Q15M PRN BUCCAL DECREASED GLUCOSE; Start 05/08/17 at 17:30 Sodium Chloride (1/2 NS) 1,000 ml @ 50 mls/hr Q20H IV ; Start 05/09/17 at 14: 00 LILIANA MCKEON MD May 09, 2017 14:29
[2017-05-09 14:47] LABS: PROTEIN/CREAT RATIO 3.28 RATIO
[2017-05-09] MEDS: SOD CHLORIDE 0.45% 1,000 ML IV SCH (14:54)
--- NOTE | 2017-05-09 17:53 | HP ---
DATE OF ADMISSION: 05/08/2017 VASCULAR SURGERY CONSULTATION Dear Doctors: Mr. Villalba is a 56-year-old gentleman who presented with left-sided arm numbness and weakness and jaw numbness with chest pain. It seems the patient was being evaluated for acute coronary syndrome and currently is admitted to the hospital being evaluated by our medical team. Vascular surgery consul tation has been obtained for evaluation of the patient's past medical history of right lower extremi ty deep venous thrombosis in which he had developed it in September of 2014 when he had a longer than 14 hour flight to the [facility] after his father had and at that time, he was placed on anticoagulation; however, the patient was not able to tolerate anticoagulation as he had a history o f GI bleed, Therefore, an IVC filter was placed at [place]. The patient mentions that he had change s in his insurance and was not able to follow up for eventual IVC filter removal. At the moment, th e patient denies shortness of breath, chest pain, nausea, vomiting, fever or chills. He denies lowe r extremity discomfort, claudication or rest pain. REVIEW OF SYSTEMS: A 14-point review performed and negative except what is mentioned in the HPI. The patient had a carotid ultrasound which was less than 50% bilaterally. Further, the patient had bilateral lower extremity ultrasound which was negative for any venous thrombosis. PAST MEDICAL HISTORY: Entails smoker, hypertension, hyperlipidemia, diabetes, gout, right lower ext remity DVT secondary to immobility on the plane, history of GI bleed secondary to NSAIDs. PAST SURGICAL HISTORY: IVC filter placement. SOCIAL HISTORY: Smoker, social drinker. Denies any substance abuse. FAMILY HISTORY: Positive for coronary artery disease and hypertension. PHYSICAL EXAMINATION: GENERAL: Alert and oriented x3, no apparent distress. HEENT: Normocephalic, atraumatic. PERRLA, EOMI. Mucosa moist. NECK: Supple. No carotid bruit. PULMONARY: Clear to auscultation bilaterally. No crackles. CARDIOVASCULAR: S1, S2 present. No murmurs. ABDOMEN: Soft, nontender, nondistended. Bowel sounds positive. LOWER EXTREMITIES: Palpable femoral pulse, faint pedal pulse. Motor and sensory intact. Capillary refill 2 to 3 seconds. 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 The patient has not had any recurrence of any jacinto p venous thrombosis and upon his venous ultrasound, he has patency throughout his lower extremities. Would recommend for the patient to have his inferior vena cava filter retrieved and will plan acco rdingly if he is cleared from a medical standpoint as he is currently being worked up for any findin gs of acute coronary syndrome. We will plan to schedule the patient for Friday if he is cleared. Recommend vascular optimization (BP meds, diet, nutrition, exercise, sugar control, antiplatelets). Discussed smoking cessation with the patient and if any help he would like to be provided. Discussed findings, plan and management with the patient and he understands. Thank you for allowing us to partake in the care of your patient. Please call with any questions. Dictated By: NORMA YOUNG/ZAALIA Conf#: [id number] DID#: [id number]
[2017-05-09] MEDS ORDERED: ATORVASTATIN 10 MG TAB PO SCH (21:00)
[2017-05-09] MEDS: LORAZEPAM 2 MG INJ IV PRN (21:17)
[2017-05-09] MEDS: ACETAMINOPHEN 325 MG TAB PO PRN (23:34)
[2017-05-10] VITALS (8 sets, daily range): BP systolic 129–168; BP diastolic 79–96; PULSE 62–77; RESP 18–20
[2017-05-10] MEDS: ACCU-CHEK XX SCH (02:00)
[2017-05-10] MEDS: PANTOPRAZOLE (EC) 40 MG TAB PO SCH (05:31)
[2017-05-10] MEDS: ACETAMINOPHEN 325 MG TAB PO PRN (05:34)
[2017-05-10] MEDS: HEPARIN 5,000 UNIT/0.5 ML VIAL SC SCH ×2 (05:36→13:33)
[2017-05-10] MEDS: INSULIN ASPART [NOVOLOG] 3 ML PEN SC SCH ×2 (07:45→11:40)
[2017-05-10 07:58] LABS: BASOPHILS % 0.4 % (0.0-2.0); EOSINOPHILS # 0.2 10^3/ul (0.0-0.5); EOSINOPHILS % 4.1 % (0.0-7.0); HEMOGLOBIN 13.4 g/dl (14.0-18.0); LYMPHOCYTES # 1.3 10^3/ul (0.8-2.9); LYMPHOCYTES % 25.6 % (15.0-51.0); MEAN CORPUSCULAR HEMOGLOBIN 31.5 pg (29.0-33.0); MEAN CORPUSCULAR HGB CONC 35.3 g/dl (32.0-37.0); MEAN CORPUSCULAR VOLUME 89.2 fl (82.0-101.0); MONOCYTE # 0.6 10^3/ul (0.3-0.9); MONOCYTES % 12.4 % (0.0-11.0); NEUTROPHIL # 2.8 10^3/ul (1.6-7.5); NEUTROPHILS % 57.3 % (39.0-77.0); PLATELET COUNT 232 10^3/UL (140-415); RED BLOOD COUNT 4.26 10^6/ul (4.70-6.10); RED CELL DISTRIBUTION WIDTH 13.1 % (11.5-14.5); WHITE BLOOD COUNT 4.9 10^3/ul (4.8-10.8)
[2017-05-10] MEDS: METOPROLOL 25 MG TAB PO SCH (08:14)
[2017-05-10] MEDS: ASPIRIN 81 MG TAB PO SCH (08:16)
[2017-05-10 09:04] LABS: CALCIUM 8.8 mg/dl (8.4-10.2); CREATININE 2.11 mg/dl (0.61-1.24); PHOSPHORUS 4.2 mg/dl (2.5-4.9); POTASSIUM 4.1 mmol/L (3.5-5.1)
[2017-05-10 09:10] LABS: MAGNESIUM 0.8 mg/dl (1.7-2.5)
[2017-05-10] MEDS: SOD CHLORIDE 0.45% 1,000 ML IV SCH (09:29)
[2017-05-10] MEDS ORDERED: MAGNESIUM SULFATE 2 GM/50 ML 50 ML IVPB ONE ×2 (09:30→14:30)
[2017-05-10] MEDS ORDERED: AMLODIPINE 5 MG TAB PO SCH (09:30)
--- NOTE | 2017-05-10 10:03 | PDOCDIS ---
Discharge Instructions CONDITION Patient Condition: Stable HOME CARE INSTRUCTIONS: Special Diet: cardiac diet ACTIVITY: Activity Restrictions: Slowly Increase Activity FOLLOW UP/APPOINTMENTS Follow-up Plan 1. Please follow up with your primary care provider as soon as possible for a referral to a neurologist and apron cleaner 2. Take new blood pressure medications, stop home amlodipine 3. Take new cholesterol medication 4. Take all other home medications as directed QUINCY HURST May 10, 2017 10:03
[2017-05-10] MEDS ORDERED: METO-448 PO (10:04)
[2017-05-10] MEDS ORDERED: ATOR10TA65 PO (10:04)
[2017-05-10] MEDS ORDERED: AMLO5TAB4 PO (10:04)
[2017-05-10] MEDS ORDERED: ASPI81TA3 PO (10:04)
[2017-05-10] MEDS ORDERED: SUCR1TAB56 PO ×2 (10:11)
[2017-05-10] MEDS ORDERED: ALLO100T PO (10:11)
[2017-05-10] MEDS ORDERED: ESOMEPRAZOLE (10:11)
--- NOTE | 2017-05-10 12:36 | DS ---
Date/Time of Note Date/Time of Note DATE: 05/10/17 TIME: 12:36 Discharge Summary Admission/Discharge Info Admit Date/Time May 08, 2017 at 14:58 Discharge Date/Time Hx of Present Illness Patient is a 56-year-old Tajik male with a past medical history of hypertension dyslipidemia diabetes mellitus and gout who presents to [facility] with a 1 day onset of chest pain of pressure-like sensation. Patient was at work when he began to sweat and also has left-sided jaw numbness and left-sided arm weakness as well as numbness. Patient stated that he went to his primary care provider after work and who quickly referred him to the emergency department. Patient was given aspirin and nitroglycerin by EMT and was admitted into the medicine service. Patient currently has no acute symptoms. Patient denies any shortness of breath, chest pain, nausea, vomiting, abdominal pain, urinary or bowel dysfunction. PMH: Hypertension, dyslipidemia, diabetes mellitus, gout, DVT secondary to immobility on airplane, history of GI bleed secondary to NSAID use PSH: IVC filter placement, not on anticoagulation secondary to remote bleeding Social: Occasional smoker, occasional drinker, denies drugs Meds: Patient cannot remember entire list, amlodipine, Januvia, allopurinol Hospital Course Patient is a 56-year-old Taj[place] male with past medical history of hypertension diabetes who originally presented for evaluation of chest pain and left-sided upper extremity weakness. Patient had multiple complaints and patient was admitted for chest pain rule out. However patient's complaints could also be consistent with hemiplegic migraine as well as TIA. Upon initial evaluation patient had no focal weakness and did not develop any focal neurologic deficits during the stay. Patient was seen by cardiology who did not deem patient necessary for any other inpatient workup and suggested outpatient follow-up for cardiac workup. Patient underwent CT of the head and carotid ultrasound which did not show any significant issues as well as echocardiogram. Echocardiogram was reviewed by cardiology. Patient was started on new medications as patient's blood pressure was not well controlled, also patient had a history of IVC filter placement for 2 years, and vascular surgery was consulted for possible removal. However patient decided that he would deal with the IVC filter in the outpatient basis with his primary care physician refused removal at this time. Patient also refused MRI, it was thoroughly explained, that the MRI would help diagnose if there was a possible CVA or TIA, however patient stated severe claustrophobia even with medication. Patient understands the risks of not getting an MRI. Patient states that he will follow-up with a neurologist in the outpatient setting. At this time it is believed that given his stress level and history of migraines, patient's symptoms were brought upon a hemiplegic migraine and prompt primary care follow- up was suggested. Patient will be discharged with appropriate medications including statin and aspirin. Discharge Diagnosis Chest pain, pressure-like sensation Upper left extremity numbness Left-sided jaw weakness Slurred speech, per patient Diabetes mellitus acute kidney injury vs CKD Hypertension Dyslipidemia Gout IVC filter placed History of DVT, secondary to airplane flight, no anticoagulation 2/2 GI bleed 2/ 2 nsaid Home Meds Active Scripts Aspirin (Aspirin) 81 Mg Chew, 81 MG PO DAILY for 30 Days, #30 TAB Prov:QUINCY HURST 05/10/17 Metoprolol Tartrate* (Lopressor*) 25 Mg Tab, 25 MG PO BID for 30 Days, #60 TAB Prov:QUINCY HURST 05/10/17 Atorvastatin (Atorvastatin) 10 Mg Tablet, 10 MG PO DAILY@21 for 30 Days, #30 TAB Prov:QUINCY HURST 05/10/17 Amlodipine Besylate* (Norvasc*) 5 Mg Tablet, 5 MG PO DAILY for 30 Days, #30 TAB Prov:QUINCY HURST 05/10/17 Reported Medications Sucralfate* (Carafate*) 1 Gm Tab, 1 GM PO BID, TAB 05/10/17 Allopurinol* (Allopurinol*) 100 Mg Tablet, 100 MG PO DAILY, TAB 05/10/17 Sitagliptin* (Januvia*) 100 Mg Tablet, 100 MG PO DAILY, #30 TAB 05/08/17 Discontinued Reported Medications [isomeprazole] No Conflict Check 05/10/17 Follow-up Plan 1. Please follow up with your primary care provider as soon as possible for a referral to a neurologist and sole cutter 2. Take new blood pressure medications, stop home amlodipine 3. Take new cholesterol medication 4. Take all other home medications as directed Primary Care Provider Care Physician No Primary Time spent on discharge: > 30 minutes Pending Labs Laboratory Tests Test 05/09/17 13:45 05/09/17 18:43 05/09/17 21:15 10/28/17 07:05 Urine Eosinophils % 0.0% (0-1.9) Urine Random Creatinine 49.69mg/dl (20-370) Urine Random Sodium 108mmol/L (30-90) Urine Protein/Creatinine Ratio 3.28RATIO Urine Total Protein 163.0mg/dl (0.0-11.9) Bedside Glucose 112mg/dL (70-220) 118mg/dL (70-220) White Blood Count 4.910^3/ul (4.8-10.8) Red Blood Count 4.2610^6/ul (4.70-6.10) Hemoglobin 13.4g/dl (14.0-18.0) Hematocrit 38.0% (42.0-52.0) Mean Corpuscular Volume 89.2fl (82.0-101.0) Mean Corpuscular Hemoglobin 31.5pg (29.0-33.0) Mean Corpuscular Hemoglobin Concent 35.3g/dl (32.0-37.0) Red Cell Distribution Width 13.1% (11.5-14.5) Platelet Count 54454^3/UL (140-415) Mean Platelet Volume 10.0fl (7.4-10.4) Neutrophils % 57.3% (39.0-77.0) Lymphocytes % 25.6% (15.0-51.0) Monocytes % 12.4% (0.0-11.0) Eosinophils % 4.1% (0.0-7.0) Basophils % 0.4% (0.0-2.0) Nucleated Red Blood Cells % 0.0/100WBC (0.0-0.0) Neutrophils # 2.810^3/ul (1.6-7.5) Lymphocytes # 1.310^3/ul (0.8-2.9) Monocytes # 0.610^3/ul (0.3-0.9) Eosinophils # 0.210^3/ul (0.0-0.5) Basophils # 0.010^3/ul (0.0-0.1) Nucleated Red Blood Cells # 0.010^3/ul (0.0-0.0) Sodium Level 139mmol/L (135-144) Potassium Level 4.1mmol/L (3.5-5.1) Chloride Level 105mmol/L (97-110) Carbon Dioxide Level 22mmol/L (21-31) Anion Gap 16 (8-16) Blood Urea Nitrogen 35mg/dl (7-20) Creatinine 2.11mg/dl (0.61-1.24) Glucose Level 104mg/dl (70-220) Calcium Level 8.8mg/dl (8.4-10.2) Phosphorus Level 4.2mg/dl (2.5-4.9) Magnesium Level 0.8mg/dl (1.7-2.5) Test 05/10/17 07:44 05/10/17 11:37 Bedside Glucose 98mg/dL (70-220) 112mg/dL (70-220) QUINCY HURST May 10, 2017 12:36
--- NOTE | 2017-05-10 13:11 | CONS ---
Date/Time of Note Date/Time of Note DATE: 05/10/17 TIME: 13:04 Assessment/Plan Assessment/Plan Additional Assessment/Plan 1. Hypomagnesium= 0.8 - Mg replaced today. fu mg level 1. Acute kidney injury vs Acute kidney injury on CKD due to Prerenal azotemia + CRS - today Bun/ Cr 35/2.11 2. possible CKD III due to diabetic nephropathy 3. Chest pain rule out ACS 4. TIA Vs Rule out CVA 5. HTN 6. Poorly controlled DM II 7. hyperlipidemia 8. History of DVT, secondary to airplane flight, no anticoagulation 2/2 GI bleed 2/2 NSAID s/p IVC filter placement before Plan: Work up for chest pain and TIA as per PMD avoid ACEI/ARB due to elevated BUN/Cr will order Urine prot/cr ratio, Urine Na, urine eosinophils, CK total ,uric acid RENAL US has been unremarkable, but it showed right kidney 10 cm and left kidney 10.2 cm, c/w medical renal disease Cardiology has been consulted on the case ASA, Lipitor and metoprolol for HTN and HL will continue to follow up on patient Plan of care dw Dr Owen Yang/staff Consultation Date/Type/Reason Admit Date/Time May 08, 2017 at 14:58 Initial Consult Date 05/09/17 Type of Consultation: Cardiology Referring Provider: QUINCY HURST 24 HR Interval Summary Free Text/Dictation nad, denies any complaints, possible discharge today. low mag- replaced by primary, check Mg level before dc- staff. Constitutional: improved Detailed Summary Respiratory: no complaints Cardiovascular: no complaints Gastrointestinal: no complaints Genitourinary: no complaints Musculoskeletal: no complaints Exam/Review of Systems Vital Signs Vitals Vital Signs Date Time Temp Pulse Resp B/P Pulse Ox O2 Delivery O2 Flow Rate FiO2 05/10/17 11:39 97.3 66 18 129/80 97 05/08/17 17:50 Room Air 05/08/17 13:35 2 Intake and Output 05/09/17 05/09/17 05/10/17 15:00 23:00 07:00 Intake Total 960 ml Balance 960 ml Exam Constitutional: alert, oriented, well developed Psych: nl mood/affect Respiratory: clear to auscultation, normal air movement Cardiovascular: nl pulses, other (s1s2) Gastrointestinal: non-tender, soft Musculoskeletal: nl extremities to inspection Extremities: normal pulses Neurological: nl mental status, nl speech Results Result Diagram: 05/10/17 0705 05/10/17 07 Results 24 hrs Laboratory Tests Test 05/09/17 13:45 05/09/17 18:43 05/09/17 21:15 05/10/17 07:05 Urine Eosinophils % 0.0 Urine Random Creatinine 49.69 Urine Random Sodium 108 H Urine Protein/Creatinine Ratio 3.28 Urine Total Protein 163.0 H Bedside Glucose 112 118 White Blood Count 4.9 Red Blood Count 4.26 L Hemoglobin 13.4 L Hematocrit 38.0 L Mean Corpuscular Volume 89.2 Mean Corpuscular Hemoglobin 31.5 Mean Corpuscular Hemoglobin Concent 35.3 Red Cell Distribution Width 13.1 Platelet Count 232 Mean Platelet Volume 10.0 Neutrophils % 57.3 Lymphocytes % 25.6 Monocytes % 12.4 H Eosinophils % 4.1 Basophils % 0.4 Nucleated Red Blood Cells % 0.0 Neutrophils # 2.8 Lymphocytes # 1.3 Monocytes # 0.6 Eosinophils # 0.2 Basophils # 0.0 Nucleated Red Blood Cells # 0.0 Sodium Level 139 Potassium Level 4.1 Chloride Level 105 Carbon Dioxide Level 22 Anion Gap 16 Blood Urea Nitrogen 35 H Creatinine 2.11 H Glucose Level 104 Calcium Level 8.8 Phosphorus Level 4.2 Magnesium Level 0.8 *L Test 05/10/17 07:44 05/10/17 11:37 Bedside Glucose 98 112 Medications Medications Current Medications Lorazepam (Ativan) 0.5 mg Q6H PRN IV ANXIETY Last administered on 05/09/17 21 :17; Admin Dose 0.5 MG; Start 05/08/17 at 17:00 Ondansetron HCl (Zofran Inj) 4 mg Q6H PRN IV NAUSEA AND/OR VOMITING; Start at 17:00 Aspirin (Aspirin) 81 mg DAILY PO Last administered on 05/10/17 08:16; Admin Dose 81 MG; Start 05/09/17 at 09:00 Acetaminophen (Tylenol Tab) 650 mg Q6H PRN PO PAIN LEVEL 1-3 OR FEVER Last administered on 05/10/17 05:34; Admin Dose 650 MG; Start 05/08/17 at 17:00 Morphine Sulfate (morphine) 2 mg Q4H PRN IV PAIN LEVEL 7-10; Start 05/08/17 at 17:00 Bisacodyl (Dulcolax) 5 mg DAILY PRN PO CONSTIPATION; Start 05/08/17 at 17:00 Pantoprazole (Protonix Tab) 40 mg DAILY@06 PO Last administered on 05/10/17 05:31; Admin Dose 40 MG; Start 05/09/17 at 06:00 Diagnostic Test (Pha) (Accu-Chek) 1 ea 02 XX ; Start 05/09/17 at 02:00 Metoprolol Tartrate (Lopressor) 25 mg BID PO Last administered on 05/09/17 21 :17; Admin Dose 25 MG; Start 05/08/17 at 21:00 Heparin Sodium (Porcine) (Heparin (5000 Units/0.5 ml)) 5,000 unit Q8 SC Last administered on 05/10/17 05:36; Admin Dose 5,000 UNIT; Start 05/08/17 at 22: 00 Miscellaneous Information 1 ea NOTE XX ; Start 05/08/17 at 17:30 Glucose (Glutose) 15 gm Q15M PRN PO DECREASED GLUCOSE; Start 05/08/17 at 17:30 Glucose (Glutose) 22.5 gm Q15M PRN PO DECREASED GLUCOSE; Start 05/08/17 at 17: 30 Dextrose (D50w Syringe) 25 ml Q15M PRN IV DECREASED GLUCOSE; Start 05/08/17 at 17:30 Dextrose (D50w Syringe) 50 ml Q15M PRN IV DECREASED GLUCOSE; Start 05/08/17 at 17:30 Glucagon (Glucagen) 1 mg Q15M PRN IM DECREASED GLUCOSE; Start 05/08/17 at 17: 30 Glucose 15 gm 15 gm Q15M PRN BUCCAL DECREASED GLUCOSE; Start 05/08/17 at 17:30 Sodium Chloride (1/2 NS) 1,000 ml @ 50 mls/hr Q20H IV Last administered on 09:29; Admin Dose 50 MLS/HR; Start 05/09/17 at 14:00 Atorvastatin Calcium (Lipitor) 10 mg DAILY@21 PO Last administered on 21:16; Admin Dose 10 MG; Start 05/09/17 at 21:00 Amlodipine Besylate (Norvasc) 5 mg DAILY PO Last administered on 10/28/17at 09: 29; Admin Dose 5 MG; Start 05/10/17 at 09:30 LASHA MUÑOZ May 10, 2017 13:10
--- NOTE | 2017-05-10 17:02 | CONS ---
Date/Time of Note Date/Time of Note DATE: 05/10/17 TIME: 17:01 Assessment/Plan Assessment/Plan Chief Complaint/Hosp Course Assessment: Chest pain - ruled out for myocardial infarction, normal LVEF 55-60% on echocardiogram Acute kidney injury vs chronic kidney disease Hypertension Dyslipidemia Diabetes mellitus Gout History of deep vein thrombosis (in setting of immobility on an airplane), status post IVC filter placement History of gastrointestinal bleeding (secondary to NSAID use) Recommendations: -continue aspirin 81mg daily -continue atorvastatin 10mg daily -outpatient cardiac stress testing Problems: Consultation Date/Type/Reason Admit Date/Time May 08, 2017 at 14:58 Initial Consult Date 05/09/17 Type of Consultation: Cardiology 24 HR Interval Summary Free Text/Dictation No acute events. No further chest pain. Detailed Summary Additional Comments 14 point review of systems without changes. Exam/Review of Systems Vital Signs Vitals Vital Signs Date Time Temp Pulse Resp B/P Pulse Ox O2 Delivery O2 Flow Rate FiO2 05/10/17 16:53 148/81 05/10/17 15:56 97.5 62 20 99 05/08/17 17:50 Room Air 05/08/17 13:35 2 Intake and Output 05/09/17 05/09/17 05/10/17 15:00 23:00 07:00 Intake Total 960 ml Balance 960 ml Exam Constitutional: alert, well developed Psych: nl mood/affect, no complaints Head: atraumatic, normocephalic Eyes: nl conjunctiva, nl lids ENMT: nl external ears & nose, nl nasal mucosa & septum Neck: non-tender, supple, No jvd Respiratory: clear to auscultation, normal air movement Cardiovascular: regular rate and rhythm, No murmurs/extra sounds Gastrointestinal: non-tender, soft Musculoskeletal: nl extremities to inspection, nl gait and stance Extremities: No clubbing, No cyanosis, No edema Neurological: nl mental status, nl speech Skin: nl turgor Results Result Diagram: 05/10/1770405/10/17704 Results 24 hrs Laboratory Tests Test 05/09/17 18:43 05/09/17 21:15 05/10/17 07:05 05/10/17 07:44 Bedside Glucose 112 118 98 White Blood Count 4.9 Red Blood Count 4.26 L Hemoglobin 13.4 L Hematocrit 38.0 L Mean Corpuscular Volume 89.2 Mean Corpuscular Hemoglobin 31.5 Mean Corpuscular Hemoglobin Concent 35.3 Red Cell Distribution Width 13.1 Platelet Count 232 Mean Platelet Volume 10.0 Neutrophils % 57.3 Lymphocytes % 25.6 Monocytes % 12.4 H Eosinophils % 4.1 Basophils % 0.4 Nucleated Red Blood Cells % 0.0 Neutrophils # 2.8 Lymphocytes # 1.3 Monocytes # 0.6 Eosinophils # 0.2 Basophils # 0.0 Nucleated Red Blood Cells # 0.0 Sodium Level 139 Potassium Level 4.1 Chloride Level 105 Carbon Dioxide Level 22 Anion Gap 16 Blood Urea Nitrogen 35 H Creatinine 2.11 H Glucose Level 104 Calcium Level 8.8 Phosphorus Level 4.2 Magnesium Level 0.8 *L Test 05/10/17 11:37 05/10/17 13:24 Bedside Glucose 112 Magnesium Level 1.1 L LILIANA MCKEON MD May 10, 2017 17:02
[2017-05-12 17:06] LABS: PTH CALCIUM 8.7 mg/dL (8.6-10.3)
== END 2017-05-10 16:55 | disposition home or self-care (01) | DRG 313 ==
LOC: EDSEX 13:09 → E/R 13:09 → MS4 14:58
PROVIDERS: ADMIT Internal Medicine; ATTEND Internal Medicine
DX: R07.9 Chest pain, unspecified (principal); E11.22 Type 2 diabetes mellitus with diabetic chronic kidney disease; N17.9 Acute kidney failure, unspecified; N18.3 Chronic kidney disease, stage 3 (moderate); I82.591 Chronic embolism and thrombosis of other specified deep vein of right lower extremity; N28.9 Disorder of kidney and ureter, unspecified; E78.5 Hyperlipidemia, unspecified; M10.9 Gout, unspecified; I12.9 Hypertensive chronic kidney disease with stage 1 through stage 4 chronic kidney disease, or unspecified chronic kidney disease; R79.89 Other specified abnormal findings of blood chemistry; R20.0 Anesthesia of skin; R47.81 Slurred speech; R29.810 Facial weakness; Z79.82 Long term (current) use of aspirin; Z72.0 Tobacco use
CPT/HCPCS: 36415; 70450; 71010; 76775; 80048; 80053; 80061; 80076; 81003; 82306; 82550; 82553; 82570; 82962; 83036; 83735; 83970; 84100; 84300; 84443; 84484; 84560; 85025; 89190; 93005; 93306; 93880; 93970; J1644; J1815; J2060; J3475; J7030